=== PATIENT | female | born 1950 | race Caucasian/White ===

== ENCOUNTER 2024-03-03 19:16 | Observation (INO) | payer BC, OTHER ==
[2024-03-03] MEDS ORDERED: ACETAMINOPHEN 500 MG TAB ONE (20:15)
[2024-03-03] MEDS ORDERED: IBUPROFEN 400 MG TAB ONE (20:15)
[2024-03-03] MEDS ORDERED: ONDANSETRON 4 MG/2 ML VIAL ONE (20:15)
[2024-03-03] MEDS ORDERED: FAMOTIDINE 20 MG/2 ML VIAL IV ONE (20:16)
[2024-03-03 20:34] LABS: SARS-CoV-2 Antigen CONTROL BLUE LINE VIS/BG OK
[2024-03-03 20:35] LABS: SARS-CoV-2 Antigen Rapid Res Positive (Negative)
[2024-03-03] MEDS ORDERED: NA CHLORIDE 0.9% 1,000 ML ONE (20:40)
[2024-03-03 20:45] LABS: Absolute Neutrophil 4.8 K/uL (1.8-8.0); Basophils % 0.6 % (0-1.3); Eosinophils % 0.1 % (0-4.4); Hematocrit 42.8 % (36.0-45.0); MCH 30.7 pg (27.0-35.0); MCHC 32.7 g/dL (32.0-36.0); MCV 93.7 fL (80-100); MPV 9.3 fL (7.6-11.3); Monocytes % 14.5 % (3.3-12.3); Neutrophils % 69.8 % (41.7-73.7); Platelets 114 thou/uL (152-406); RBC Red Blood Cell Count 4.57 M/uL (3.86-4.86); Red Cell Distribution Width 14.1 % (12.1-15.2)
[2024-03-03 21:04] LABS: Albumin 3.7 g/dL (3.4-5.0); Anion Gap 6.4 mEq/L (5.0-15.0); Globulin 3.7 g/dL (2.3-3.5); Potassium 4.4 mEq/L (3.5-5.1); Protein, Total 7.4 g/dL (6.4-8.2)
[2024-03-03] MEDS ORDERED: ALBUTEROL 2.5 MG/3 ML NEB SOL ONE (21:27)
[2024-03-03 22:03] LABS: Blood O2 Saturation 79.2 % (92-98.5)
[2024-03-03 22:04] LABS: Arterial Blood Carboxyhemoglob 1.1 % (0-1.5); Blood Gas Oxyhemoglobin 77.1 % (94-97); Blood Gas THB 14.1 g/dl (12-18)
[2024-03-03] MEDS ORDERED: dexAMETHasone 10 MG/ML VIAL ONE (22:42)
--- NOTE | 2024-03-03 23:59 | EDPHYS ---
Physician Documentation [facility] Name: Helga Panchal Age: 73 yrs Sex: Female : 1950 Arrival Date: 03/03/2024 Time: 19:16 Bed 14 Private MD: Clyde Cardozo V ED Physician Olaf Lyman HPI: 03/03 19:22 This 73 yrs old Female presents to ER via Unassigned with complaints of sp4 Fever, Nausea, Abdominal Problem. 19:55 3-year-old female that he is presenting with onset of fever of 101 at home associating sp4 with nausea and some bodyaches. Denied diarrhea or vomiting. . Historical: - Allergies: 19:43 No Known Allergies; me1 - PMHx: 19:43 Hypertensive disorder; me1 - PSHx: 19:43 Total abdominal hysterectomy; me1 - Immunization history:: Adult Immunizations unknown. - Infectious Disease History:: Denies. - Social history:: Smoking status: Patient denies any tobacco usage or history of. - Family history:: not pertinent. ROS: 19:55 Constitutional: For fever positive for body aches. sp4 19:55 All other systems are negative, Exam: 19:55 Constitutional: This is a well developed, well nourished patient who is awake, alert, sp4 and in no acute distress. Head/Face: Normocephalic, atraumatic. 19:56 Eyes: Pupils equal round and reactive to light, extra-ocular motions intact. Lids and sp4 lashes normal. Conjunctiva and sclera are not injected. Cornea within normal limits. Periorbital areas with no swelling, redness, or edema. ENT: Nares patent. No nasal discharge, no septal abnormalities noted. Tympanic membranes are normal and external auditory canals are clear. Oropharynx with no redness, swelling, or masses, exudates, or evidence of obstruction, uvula midline. Mucous membranes moist. Neck: Trachea midline, no thyromegaly or masses palpated, and no cervical lymphadenopathy. Supple, full range of motion without nuchal rigidity, or vertebral point tenderness. Chest/axilla: Normal chest wall appearance and motion. Nontender with no deformity. No lesions are appreciated. Cardiovascular: Regular rate and rhythm with a normal S1 and S2. No gallops, murmurs, or rubs. Normal PMI, no JVD. No pulse deficits. Respiratory: Lungs have equal breath sounds bilaterally, clear to auscultation and percussion. No rales, rhonchi or wheezes noted. No increased work of breathing, no retractions or nasal flaring. Abdomen/GI: Soft, with normal bowel sounds. No distension or tympany. No guarding or rebound. No evidence of tenderness throughout. Back: No spinal tenderness. No costovertebral tenderness. Skin: Warm, dry with normal turgor. Normal color with no rashes, no lesions, and no evidence of cellulitis. MS/ Extremity: Pulses equal, no cyanosis. Neurovascular intact. Full, normal range of motion. Neuro: Awake and alert, GCS 15, oriented to person, place, time, and situation. Cranial nerves II-XII grossly intact. Motor strength 5/5 in all extremities. Sensory grossly intact. Psych: Awake, alert, with orientation to person, place and time. Behavior, mood, and affect are within normal limits Vital Signs: 19:41 BP 138 / 65; Pulse 76; Resp 18; Temp 97.2; Pulse Ox 96% on R/A; Weight 100.7 kg (M); me1 Height 5 ft. 8 in. ; Pain 0/10; 20:23 Temp 100.1(O); tl4 20:59 BP 117 / 67; Pulse 73; Pulse Ox 95% on R/A; tm6 21:41 BP 115 / 57; Pulse 77; Pulse Ox 88% on R/A; tm6 21:44 Pulse Ox 93% on 2 lpm NC; tm6 22:36 BP 112 / 58; Pulse 73; Pulse Ox 90% on R/A; tm6 22:47 BP 102 / 55; Pulse 73; Pulse Ox 97% on 2 lpm NC; Pain 0/10; tm6 03/04 00:30 BP 101 / 57; Pulse 66; Pulse Ox 96% on 2 lpm NC; Pain 0/10; tm6 03/03 19:41 Body Mass Index 33.76 (100.70 kg, 172.72 cm) me1 03/03 19:41 Pain Scale: Adult me1 22:47 Pain Scale: Adult tm6 03/04 00:30 Pain Scale: Adult tm6 Jessica Coma Score: 03/03 19:56 Eye Response: spontaneous(4). Motor Response: obeys commands(6). Verbal Response: sp4 oriented(5). Total: 15. MDM: 19:53 Patient medically screened. sp4 23:43 ED course: EXAM DESCRIPTION: Chest Single View CLINICAL HISTORY:73 years Female, sp4 Congestion. Comparison: None. IMPRESSION: Chronic lung changes. No focal consolidation. No pleural effusion. No pneumothorax. Cardiomediastinal silhouette is within normal limits. No acute osseous abnormality. Electronically signed by: Don Lo DO 03/03/2024 11:13 PM. ED course: CTA THORAX - PULMONARYARTERIES HISTORY: Suspected pulmonary embolus. COMPARISON: None. TECHNIQUE: Intravenous low osmolar contrast. Coronal and sagittal reformations including 3D maximum intensity projections. This exam was performed according to our departmental dose-optimization program, which includes automated exposure control, adjustment of the mA and/or kV according to patient size and/or use of iterative reconstruction technique. FINDINGS: PULMONARYARTERIAL SYSTEM: Contrast bolus is adequate. No CT evidence for pulmonary embolism. CARDIAC: Coronary artery calcifications. AORTA/VASCULAR: No aneurysm. Thoracic aortic atherosclerosis. LYMPH NODES/MEDIASTINUM: No thoracic adenopathy. CENTRAL AIRWAYS: Central airways are patent. LUNGS: No pulmonary infiltrates or masses. PLEURA: Normal. ESOPHAGUS: Collapsed and not well assessed by CT, without obvious abnormality. THYROID: Enlarged heterogeneous left thyroid gland, with mild rightward mass effect on the trachea. CHEST WALL: Normal. UPPER ABDOMEN: Normal. THORACIC SKELETAL: No acute finding. ADDITIONAL CHEST FINDINGS: None. IMPRESSION: 1. No evidence of acute pulmonary embolus. 2. No acute thoracic findings. 3. Enlarged heterogeneous left thyroid gland, with mild rightward mass effect on the trachea. Recommend nonemergent thyroid ultrasound. Electronically signed by: Víctor Parikh MD 03/03/2024 11:27 PM . 23:58 Differential diagnosis: viral Infection, bacterial infection, bronchitis, pneumonia sp4 UTI, gastroenteritis. Data reviewed: vital signs, nurses notes, old medical records, lab test result(s), radiologic studies, CT scan. Consideration of Admission/Observation Escalation of care including admission/observation considered. ED course: Without an oxygen support patient oxygenation dropped to 88%. At this time patient warrants admission for oxygenation breathing treatments IV dexamethasone. Will defer Paxlovid order to PCP in the morning. 03/03 19:25 Order name: SARS RAPID; Complete Time: 21:17 sp4 03/03 19:26 Order name: CBC with Diff; Complete Time: 21:17 sp4 03/03 19:26 Order name: CMP; Complete Time: 21:17 sp4 03/03 19:26 Order name: Lipase; Complete Time: 21:17 sp4 03/03 21:24 Order name: ABG: Venous Blood Gas - check CO2 sp4 03/03 22:05 Order name: ABG Arterial Blood Gas; Complete Time: 22:27 EDMS 03/04 05:51 Order name: CBC with Automated Diff; Complete Time: 06:19 EDMS 03/04 06:04 Order name: Basic Metabolic Panel; Complete Time: 06:19 EDMS 03/04 06:11 Order name: T4 Free EDMS 03/04 06:11 Order name: Thyroid Stimulating Hormone EDMS 03/03 21:24 Order name: Chest Single View XRAY 4 03/03 22:27 Order name: CT Chest For PE Angio 4 03/04 08:34 Order name: US EDMN 03/03 19:26 Order name: IV Saline Lock; Complete Time: 20:59 4 03/03 19:26 Order name: Labs collected and sent; Complete Time: 20:59 sp4 Administered Medications: 20:58 Drug: Acetaminophen PO 1000 mg PO once Route: PO; tm6 20:59 Drug: NS 0.9% IV 1000 ml IV at 125 ml/hr continuous Route: IV; Rate: 125 ml/hr; Site: tm6 left antecubital; 20:59 Drug: Famotidine IVP 20 mg IVP once; dilute with 10 mL 0.9% NaCl; give over 2 minutes tm6 Route: IVP; Site: left antecubital; 20:59 Drug: Ondansetron IVP 4 mg IVP once; over 2 minutes Route: IVP; Site: left antecubital; tm6 20:59 Drug: Ibuprofen PO 800 mg PO once Route: PO; tm6 21:30 Drug: Albuterol Inhalation 2.5 mg Inhalation once Route: Inhalation; tm6 22:47 Drug: Dexamethasone IVP 10 mg IVP once; (not to exceed 40 mg) Route: IVP; Site: left tm6 antecubital; Disposition Summary: 03/03/24 23:58 Hospitalization Ordered Notes: Hospitalization Status: Inpatient Admission sp4 Provider: Clyde Cardozo sp4 Condition: Stable sp4 Problem: new sp4 Symptoms: have improved sp4 Bed/Room Type: Standard sp4 Location: [facility] [place] ER HOLD(03/04/24 01:14) vc1 Room Assignment: ERHOLD-(03/04/24 01:14) vc1 Diagnosis - Hypoxemia sp4 - Acute COVID-19 , Hypoxemia, Thyroid enlargement sp4 Forms: - Medication Reconciliation Form sp4 - SBAR form sp4 - Leadership Thank You Letter sp4 Signatures: Dispatcher [employer] EDMS Sheela Can RN RN vc1 Olaf Lyman MD MD sp4 Marilyn Boateng RN RN me1 Senait Ibrahim RN RN tm6 Corrections: (The following items were deleted from the chart) 19:27 19:27 CBC+H.LAB.BRZ ordered. EDMS EDMS 19:27 19:27 COMPREHENSIVE METABOLIC PANEL+C.LAB.BRZ ordered. EDMS EDMS 19:27 19:27 LIPASE+C.LAB.BRZ ordered. EDMS EDMS 22:28 22:28 Chest For PE Angio+CT.RAD.BRZ ordered. EDMS EDMS 03/04 01:14 03/03 23:58 Telemetry/MedSurg (Inpatient) sp4 vc1 03/04 01:14 03/03 23:58 sp4 vc1
--- NOTE | 2024-03-03 23:59 | ER ---
Nurse's Notes [facility] Name: Helga Panchal Age: 73 yrs Sex: Female : 1950 Arrival Date: 03/03/2024 Time: 19:16 Bed 14 Private MD: Clyde Cardozo V Diagnosis: Hypoxemia;Acute COVID-19 , Hypoxemia, Thyroid enlargement Presentation: 03/03 19:41 Chief complaint: Patient states: Pt c/o nausea since yesterday. Pt denies vomiting, me1 diarrhea, abdominal pain, dizziness, fever/chills. Coronavirus screen: At this time, the client does not indicate any symptoms associated with coronavirus-19. Ebola Screen: No symptoms or risks identified at this time. Initial Sepsis Screen: Does the patient meet any 2 criteria? No. Patient's initial sepsis screen is negative. Does the patient have a suspected source of infection? No. Patient's initial sepsis screen is negative. Risk Assessment: Do you want to hurt yourself or someone else? Patient reports no desire to harm self or others. Onset of symptoms was March 02, 2024. 19:41 Method Of Arrival: Ambulatory [facility] [place] 19:41 Acuity: LEONARD 3 me1 Triage Assessment: 19:44 General: Appears in no apparent distress. Behavior is calm, cooperative. Pain: Denies me1 pain. EENT: No signs and/or symptoms were reported regarding the EENT system. Neuro: Level of Consciousness is awake, alert, obeys commands, Oriented to person, place, time, situation. Cardiovascular: Capillary refill < 3 seconds Patient's skin is warm and dry. Respiratory: Airway is patent Respiratory effort is even, unlabored, Respiratory pattern is regular, symmetrical. GI: Reports nausea, Patient currently denies abdominal pain, diarrhea, intolerance of fluids, intolerance of food, vomiting. : No signs and/or symptoms were reported regarding the genitourinary system. Derm: No signs and/or symptoms reported regarding the dermatologic system. Musculoskeletal: No signs and/or symptoms reported regarding the musculoskeletal system. Historical: - Allergies: 19:43 No Known Allergies; me1 - PMHx: 19:43 Hypertensive disorder; me1 - PSHx: 19:43 Total abdominal hysterectomy; me1 - Immunization history:: Adult Immunizations unknown. - Infectious Disease History:: Denies. - Social history:: Smoking status: Patient denies any tobacco usage or history of. - Family history:: not pertinent. Screenin:52 [facility] ED Fall Risk Assessment (Adult) History of falling in the last 3 months, tm6 including since admission No falls in past 3 months (0 pts) Confusion or Disorientation No (0 pts) Intoxicated or Sedated No (0 pts) Impaired Gait No (0 pts) Mobility Assist Device Used No (0 pt) Altered Elimination No (0 pt) Score/Fall Risk Level 0 - 2 = Low Risk Oriented to surroundings, Maintained a safe environment, Educated pt \T\ family on fall prevention, incl call for assistance when getting out of bed. Abuse screen: Denies threats or abuse. Denies injuries from another. Nutritional screening: No deficits noted. Tuberculosis screening: No symptoms or risk factors identified. Assessment: 19:52 General: Appears in no apparent distress. Behavior is calm, cooperative. Pain: Denies tm6 pain. Neuro: Level of Consciousness is awake, alert, obeys commands, Oriented to person, place, time, situation. Cardiovascular: Patient's skin is warm and dry. Respiratory: Airway is patent Respiratory effort is even, unlabored, Respiratory pattern is regular, symmetrical. GI: Abdomen is round non-distended, Abd is soft and non tender X 4 quads. Reports nausea. : No signs and/or symptoms were reported regarding the genitourinary system. EENT: No signs and/or symptoms were reported regarding the EENT system. Derm: No signs and/or symptoms reported regarding the dermatologic system. Musculoskeletal: No signs and/or symptoms reported regarding the musculoskeletal system. 21:00 Reassessment: Patient and/or family updated on plan of care and expected duration. Pain tm6 level reassessed. Patient is alert, oriented x 3, equal unlabored respirations, skin warm/dry/pink. 22:36 Reassessment: Patient appears in no apparent distress at this time. Patient and/or tm6 family updated on plan of care and expected duration. Pain level reassessed. Patient is alert, oriented x 3, equal unlabored respirations, skin warm/dry/pink. 08 00:31 Reassessment: Patient and/or family updated on plan of care and expected duration. Pain tm6 level reassessed. Patient is alert, oriented x 3, equal unlabored respirations, skin warm/dry/pink. Vital Signs: 03/03 19:41 BP 138 / 65; Pulse 76; Resp 18; Temp 97.2; Pulse Ox 96% on R/A; Weight 100.7 kg (M); me1 Height 5 ft. 8 in. ; Pain 0/10; 20:23 Temp 100.1(O); tl4 20:59 BP 117 / 67; Pulse 73; Pulse Ox 95% on R/A; tm6 21:41 BP 115 / 57; Pulse 77; Pulse Ox 88% on R/A; tm6 21:44 Pulse Ox 93% on 2 lpm NC; tm6 22:36 BP 112 / 58; Pulse 73; Pulse Ox 90% on R/A; tm6 22:47 BP 102 / 55; Pulse 73; Pulse Ox 97% on 2 lpm NC; Pain 0/10; tm6 03/04 00:30 BP 101 / 57; Pulse 66; Pulse Ox 96% on 2 lpm NC; Pain 0/10; tm6 03/03 19:41 Body Mass Index 33.76 (100.70 kg, 172.72 cm) wi1 03/03 19:41 Pain Scale: Adult me1 22:47 Pain Scale: Adult tm6 03/04 00:30 Pain Scale: Adult tm6 Jessica Coma Score: 03/03 19:56 Eye Response: spontaneous(4). Motor Response: obeys commands(6). Verbal Response: sp4 oriented(5). Total: 15. ED Course: 19:21 Patient arrived in ED. gm2 19:22 Olaf Lyman MD is Attending Physician. sp4 19:22 Clyde Cardozo MD is Private Physician. gm2 19:43 Triage completed. me1 19:45 Arm band placed on right wrist. me1 19:51 Senait Ibrahim, MARIAM is Primary Nurse. tm6 19:52 Patient has correct armband on for positive identification. Bed in low position. Call tm6 light in reach. Side rails up X 1. Provided Education on: use of call yen. Client placed on continuous cardiac and pulse oximetry monitoring. NIBP monitoring applied. Pulse ox on. NIBP on. Door closed. Noise minimized. Pillow given. 20:33 Missed attempt(s): 22 gauge Bleeding controlled, band aid applied, catheter tip intact. oe 20:36 Inserted saline lock: 20 gauge in left antecubital area, using aseptic technique. Blood oe collected. Flushed with 10 mL NS. 22:13 Chest Single View XRAY In Process Unspecified. EDMS 23:03 CT Chest For PE Angio In Process Unspecified. EDMS 23:57 Clyde Cardozo MD is Hospitalizing Provider. sp4 03/04 02:08 No provider procedures requiring assistance completed. Patient admitted, IV remains in tm6 place. Administered Medications: 03/03 20:58 Drug: Acetaminophen PO 1000 mg PO once Route: PO; tm6 20:59 Drug: NS 0.9% IV 1000 ml IV at 125 ml/hr continuous Route: IV; Rate: 125 ml/hr; Site: tm6 left antecubital; 20:59 Drug: Famotidine IVP 20 mg IVP once; dilute with 10 mL 0.9% NaCl; give over 2 minutes tm6 Route: IVP; Site: left antecubital; 20:59 Drug: Ondansetron IVP 4 mg IVP once; over 2 minutes Route: IVP; Site: left antecubital; tm6 20:59 Drug: Ibuprofen PO 800 mg PO once Route: PO; tm6 21:30 Drug: Albuterol Inhalation 2.5 mg Inhalation once Route: Inhalation; tm6 22:47 Drug: Dexamethasone IVP 10 mg IVP once; (not to exceed 40 mg) Route: IVP; Site: left tm6 antecubital; Medication: 19:52 VIS not applicable for this client. tm6 Outcome: 23:58 Decision to Hospitalize by Provider. sp4 03/04 02:08 Admitted to ER Hold. Please see [facility] for further documentation. tm6 Condition: stable Instructed on the need for admit, 14:47 Patient left the ED. dd2 Signatures: Dispatcher [employer] EDMS Luther Mayfield Sergey, MD MD sp4 Marilyn Boateng RN RN 1 Adriana Angulo gm2 Senait Ibrahim RN RN tm6 Pedro Kline RN RN tl4 GRISELDA SANCHEZ RN RN dd2
[2024-03-04] MEDS ORDERED: HYDROCODONE/APAP 5/325 MG TAB PO PRN (01:20)
[2024-03-04] MEDS ORDERED: ACETAMINOPHEN 325 MG TABLET PO PRN (01:20)
[2024-03-04] MEDS ORDERED: HYDRALAZINE HCL 20 MG/ML VIAL IV PRN (01:20)
[2024-03-04] MEDS: NA CHLORIDE 0.9% 1,000 ML IV SCH (01:20)
[2024-03-04] MEDS ORDERED: ONDANSETRON 4 MG/2 ML VIAL IV PRN (01:20)
[2024-03-04] MEDS ORDERED: ZOLPIDEM TARTRATE 5 MG TABLET PO PRN (01:20)
[2024-03-04] MEDS ORDERED: ACETAMINOPHEN 500 MG TAB PO PRN (01:26)
[2024-03-04] MEDS ORDERED: ALBUTEROL 2.5 MG/3 ML NEB SOL ONE ×2 (01:55→09:13)
[2024-03-04] MEDS ORDERED: IPRATROPIUM BROM 0.5MG/2.5ML ONE ×2 (01:55→09:13)
[2024-03-04] MEDS: IPRATROPIUM BROM 0.5MG/2.5ML NEB SCH (01:57)
[2024-03-04] MEDS: ALBUTEROL 2.5 MG/3 ML NEB SOL NEB SCH (01:57)
[2024-03-04] MEDS ORDERED: NA CHLORIDE 0.9% 1,000 ML ONE (02:01)
[2024-03-04 02:37] VITALS: BMI 33.7
[2024-03-04 05:46] LABS: Absolute Lymphocytes (CBC) 0.8 K/uL (0.7-4.9); Absolute Monocytes 0.1 K/uL (0.1-1.3); Absolute Neutrophil 4.4 K/uL (1.8-8.0); Basophils % 0.2 % (0-1.3); Hematocrit 39.3 % (36.0-45.0); Hemoglobin 13.2 g/dL (12.0-15.0); MCH 31.3 pg (27.0-35.0); MCHC 33.5 g/dL (32.0-36.0); MCV 93.2 fL (80-100); MPV 9.2 fL (7.6-11.3); Monocytes % 2.5 % (3.3-12.3); Neutrophils % 82.3 % (41.7-73.7); Nucleated Red Blood Cells % 0.1 % (0-0); Platelets 109 thou/uL (152-406); RBC Red Blood Cell Count 4.22 M/uL (3.86-4.86); Red Cell Distribution Width 14.1 % (12.1-15.2)
[2024-03-04 05:55] LABS: Anion Gap 6.3 mEq/L (5.0-15.0); Potassium 4.3 mEq/L (3.5-5.1)
[2024-03-04 06:10] LABS: Thyroid Stimulating Hormone 0.014 uIU/mL (0.358-3.740)
--- NOTE | 2024-03-04 08:33 | RAD REPORT ---
EXAM DESCRIPTION: US Thyroid Para Parotid Gland CLINICAL HISTORY: Thyromegaly COMPARISON: Chest For Pe Angio dated 03/03/2024 TECHNIQUE: Sonographic grayscale and color flow images of the thyroid gland were obtained. FINDINGS: Thyroid parenchyma is heterogeneous. The isthmus is compressed and deformed by the left th yroid nodule, not discretely measurable. Right thyroid lobe measures 3.8 x 2.3 x 3.1 cm. Left thyroid lobe is entirely occupied by a large nodule with retrosternal extension, the visible measurable port ion measures 3.9 x 3.0 x 2.3 cm. Nodules: Right lobe: Bilobed anechoic wider than tall anterior interpolar cyst with no calcifications measurin g 10 x 9 x 9 mm, TR 2. Hypoechoic spongiform wider than tall anteriorly positioned nodule measuring 1 .4 x 0.7 x 1.2 cm, TR 2. Other scattered small cystic spaces throughout the right lobe. Left lobe: Large heterogeneous isoechoic to hyperechoic nodule occupying the entirety of the left thy roid lobe measuring at least 3.9 x 3.0 x 2.3 cm, with no calcifications, TR 3. IMPRESSION: Dominant left lobe nodule occupying the entirety of the left lobe measuring up to 3.9 cm with retrosternal extension, TR 3. This is amenable to ultrasound-guided FNA given size. _ ACR TI RADS flow chart Composition: Shape: Margin: 0 (cystic or spongiform) 0 (wider than tall) 0 (smooth or ill-defined ) 1 (mixed cystic and solid) 3 (taller than wide) 2 (lobulated or irregular ) 2 (solid or almost completely solid) 3 (extra thyroidal ex tension) Echogenicity: Echogenic f oci: 0 (Anechoic) 0 (none or large comet tail artifacts) 1 (hyperechoic or isoechoic) 1 (macro calcifica tions) 2 (hypoechoic) 2 (periphera l/rim calcifications) 3 (very hypoechoic) 3 (punctate ec hogenic foci) Total number of points: 0 points: 2 points: 3 points: 4-6 points: 7 points or more: TR 1 TR 2 TR 3 TR 4 TR 5 Benign Not suspicious Mildly suspicious Moderately suspicious Highly suspicious No FNA No FNA FNA if >/= 2.5 cm FNA if >/= 1.5 cm FNA if >/= 1 cm - Follow if >/= 1.5 cm Follow if >/= 1 cm Follow if >/= 0.5 cm
[2024-03-04] MEDS: dexAMETHasone 10 MG/ML VIAL IV SCH (09:00)
[2024-03-04 10:08] VITALS: O2SAT 97
--- NOTE | 2024-03-04 12:57 | RAD REPORT ---
EXAM DESCRIPTION: RAD - Chest Single View - 03/03/2024 10:11 pm CLINICAL HISTORY: 3 years Female, Congestion. COMPARISON: None. IMPRESSION: Chronic lung changes. No focal consolidation. No pleural effusion. No pneumothorax. Cardiomediastinal silhouette is within normal limits. No acute osseous abnormality. Electronically signed by: Don Lo DO 03/03/2024 11:13 PM CDT RP 9 Due to temporary technical issues with the PACS/Fluency reporting system, reports are being signed by the in house radiologist without review as a courtesy to ensure prompt reporting. The interpreting r adiologist is fully responsible for the content of the report.
--- NOTE | 2024-03-04 13:25 | RAD REPORT ---
EXAM DESCRIPTION: CT - Chest For Pe Angio - 03/03/2024 11:02 pm CLINICAL HISTORY: Suspected pulmonary embolus. COMPARISON: None. TECHNIQUE: Intravenous low osmolar contrast. Coronal and sagittal reformations including 3D maximu m intensity projections. This exam was performed according to our departmental dose-optimization program, which includes autom ated exposure control, adjustment of the mA and/or kV according to patient size and/or use of iterati ve reconstruction technique. FINDINGS: PULMONARY ARTERIAL SYSTEM: Contrast bolus is adequate. No CT evidence for pulmonary embo lism. CARDIAC: Coronary artery calcifications. AORTA/VASCULAR: No aneurysm. Thoracic aortic atherosclerosis. LYMPH NODES/MEDIASTINUM: No thoracic adenopathy. CENTRAL AIRWAYS: Central airways are patent. LUNGS: No pulmonary infiltrates or masses. PLEURA: Normal. ESOPHAGUS: Collapsed and not well assessed by CT, without obvious abnormality. THYROID: Enlarged heterogeneous left thyroid gland, with mild rightward mass effect on the trachea. CHEST WALL: Normal. UPPER ABDOMEN: Normal. THORACIC SKELETAL: No acute finding. ADDITIONAL CHEST FINDINGS: None. IMPRESSION: 1. No evidence of acute pulmonary embolus. 2. No acute thoracic findings. 3. Enlarged heterogeneous left thyroid gland, with mild rightward mass effect on the trachea. Recom mend nonemergent thyroid ultrasound. Electronically signed by: Víctor Parikh MD 03/03/2024 11:27 PM CDT Z9 Due to temporary technical issues with the PACS/Fluency reporting system, reports are being signed by the in house radiologist without review as a courtesy to ensure prompt reporting. The interpreting r adiologist is fully responsible for the content of the report.
[2024-03-04 14:34] VITALS: BP 106/67; TEMP 98
--- NOTE | 2024-03-04 21:34 | P.SSS ---
Patient History Date of Service: 03/04/24 Reason for admission: FEVER, WEAKNESS History of Present Illness: BONNIE IS A PATIENT WITH HTN, OBESITY AND COMES WITH FEVER AND FATIGUE FOR TWO DAYS. SHE HAS NO DYSPNEA. SHE HAS MILD HYPOXIA. SHE GOT STEROIDS AND GOT BETTER. HER ABG SHOWS SIGNS OF HYPERCAPNEA FROM OBESITY RATHER THAN COVID. X RAY AND CT ARE NEGATIVE. SHE IS STABLE TO GO HOME. Allergies No Known Allergies Allergy (Unverified 03/03/24 23:46) Home medications list reviewed: Yes - Past Medical/Surgical History Has patient received pneumonia vaccine in the past: Yes - Social History Smoking Status: Never smoker Place of Residence: Home Review of Systems 10-point ROS is otherwise unremarkable General: Weakness Physical Examination - Vital Signs Temperature: 98 F Blood Pressure: 106/67 Pulse: 97 Respirations: 16 Pulse Ox (%): 95 - Physical Exam General: Mild distress HEENT: Atraumatic, PERRLA, Mucous membr. moist/pink, EOMI, Sclerae nonicteric Neck: Supple, 2+ carotid pulse no bruit, No LAD, Without JVD or thyroid abnormality Respiratory: Clear to auscultation bilaterally, Normal air movement Cardiovascular: Regular rate/rhythm, Normal S1 S2 Gastrointestinal: Normal bowel sounds, No tenderness Musculoskeletal: No tenderness Integumentary: No rashes Neurological: Normal gait, Normal speech, Normal strength at 5/5 x4 extr, Normal tone, Normal affect Lymphatics: No axilla or inguinal lymphadenopathy - Diagnosis (Problem(s)) (1) COVID Status: Acute Plan: I CALLED IN DEXAMETHASONE PAXLOVID AND ALBUTEROL INHALER WE CAN FU IN 10 DAYS. SHE IS ABLE TO AMBULATE WITHOUT ANY ASSISTANCE. (2) Acute respiratory failure with hypoxia and hypercarbia Status: Acute Plan: RESOLVED AFTER ONE DAY OF STEORIDS SHE IS NOT HYPOXIC ANY LONGER. SHE NEEDS TO LOSE WEIGHT TO AVOID THIS AGAIN. - Disposition Disposition: DC HOME/HOME HEALTH CARE Condition: GOOD
[2024-03-04 22:50] LABS: T3 Free 1.69 pg/mL (2.18-3.98)
== END 2024-03-04 14:35 | disposition home health service (06) ==
LOC: ER 19:16 → ERHOLD 23:46 → INTOOBSV 23:46
PROVIDERS: ADMIT Internal Medicine; ATTEND Internal Medicine
DX: U07.1 COVID-19 (principal); J96.02 Acute respiratory failure with hypercapnia; J96.01 Acute respiratory failure with hypoxia; R53.1 Weakness; E66.9 Obesity, unspecified; I10 Essential (primary) hypertension; Z68.33 Body mass index [BMI] 33.0-33.9, adult
CPT/HCPCS: 36415; 71045; 71275; 76536; 80048; 80053; 82805; 83690; 84439; 84443; 84481; 85025; 87811; 94640; 94760; G0378; J1100; J2405; J7030; J7613; J7644; Q9967